=== PATIENT | female | born 1935 | race Caucasian/White ===

== ENCOUNTER 2019-04-10 10:09 | Emergency (ER) | payer MEDICARE, OTHER ==
--- NOTE | 2019-04-10 10:26 | ER Document Report ---
ED Medical Screen (RME) - General Chief Complaint: Leg Swelling Stated Complaint: LEG SWELLING Time Seen by Provider: 04/10/19 10:18 Mode of Arrival: Wheelchair Notes: 84-year-old female presented to ED for pain swelling and discomfort in the right leg. She states she fell in February and has had the swelling in this leg since then. The leg is discolored with some numbness to the leg. She states most of the pain is in the front of the leg but there is hardness to the back of the leg. Patient is alert oriented respirations regular and unlabored speaking in full sentences she is here with her family. I have greeted and performed a rapid initial assessment of this patient. A comprehensive ED assessment and evaluation of the patient, analysis of test results and completion of medical decision making process will be conducted by an additional ED providers. Dictation of this chart was performed using voice recognition software; therefore, there may be some unintended grammatical errors. TRAVEL OUTSIDE OF THE [place] IN LAST 30 DAYS: No - Related Data Allergies/Adverse Reactions: codeine Allergy (Mild, Verified 04/10/19 10:10) Past Medical History - Social History Chew tobacco use (# tins/day): No Frequency of alcohol use: None Drug Abuse: None - Past Medical History Cardiac Medical History: Reports: Hx Heart Attack, Hx Hypertension Pulmonary Medical History: Reports: Hx COPD Renal/ Medical History: Denies: Hx Peritoneal Dialysis Past Surgical History: Reports: Hx Abdominal Surgery - bowel anastimosis, kidney removal, Hx Kidney (Renal Surgery) Physical Exam - Vital signs Vitals: Temp Pulse Resp BP Pulse Ox 98.2 F 70 22 H 148/52 H 95 04/10/19 10:16 04/10/19 10:16 04/10/19 10:16 04/10/19 10:16 04/10/19 10:16 Course - Vital Signs Vital signs: Temp Pulse Resp BP Pulse Ox 98.2 F 70 22 H 148/52 H 95 04/10/19 10:16 04/10/19 10:16 04/10/19 10:16 04/10/19 10:16 04/10/19 10:16
[2019-04-10 10:47] LABS: APPEARANCE,URINE SLIGHTLY-CLOUDY; BILIRUBIN,URINE NEGATIVE (NEGATIVE); COLOR,URINE YELLOW; GLUCOSE, URINE NEGATIVE (NEGATIVE); KETONES,URINE NEGATIVE (NEGATIVE); LEUKOCYTE ESTERASE,URINE NEGATIVE (NEGATIVE); NITRITE,URINE NEGATIVE (NEGATIVE); PROTEIN,URINE NEGATIVE (NEGATIVE); URINE SPECIFIC GRAVITY 1.014; UROBILINOGEN,URINE NEGATIVE mg/dL (<2.0)
[2019-04-10 11:25] LABS: ABSOLUTE EOSINOPHILS # (AUTO) 0.1 10^3/uL (0.0-0.6); ABSOLUTE LYMPHOCYTES (AUTO) 1.4 10^3/uL (0.5-4.7); ABSOLUTE MONOCYTES (AUTO) 0.8 10^3/uL (0.1-1.4); ABSOLUTE NEUT (AUTO) 7.5 10^3/uL (1.7-8.2); BASOPHILS % (AUTO) 0.3 % (0-2); EOSINOPHILS % (AUTO) 1.2 % (0-6); HEMATOCRIT 34.2 % (36.0-47.0); HEMOGLOBIN 11.4 g/dL (12.0-15.5); LYMPHOCYTES % (AUTO) 14.4 % (13-45); MEAN CORPUSCULAR HEMOGLOBIN 29.9 pg (27.0-33.4); MEAN CORPUSCULAR HGB CONC 33.3 g/dL (32.0-36.0); MEAN CORPUSCULAR VOLUME 90 fl (80-97); MONOCYTES % (AUTO) 7.9 % (3-13); PLATELET COUNT 210 10^3/uL (150-450); RED BLOOD COUNT 3.81 10^6/uL (3.72-5.28); RED CELL DISTRIBUTION WIDTH 13.7 % (11.5-14.0); SEGMENTED NEUTROPHILS % (AUTO) 76.2 % (42-78); TOTAL CELLS COUNTED % (AUTO) 100 %; WHITE BLOOD COUNT 9.9 10^3/uL (4.0-10.5)
[2019-04-10 11:30] LABS: ALANINE AMINOTRANSFERASE 39 U/L (9-52); ALBUMIN 3.9 g/dL (3.5-5.0); ALKALINE PHOSPHATASE 62 U/L (38-126); ANION GAP 8 (5-19); ASPARTATE AMINO TRANSFERASE 22 U/L (14-36); BILIRUBIN,DIRECT 0.2 mg/dL (0.0-0.4); BILIRUBIN,TOTAL 0.3 mg/dL (0.2-1.3); BLOOD UREA NITROGEN 41 mg/dL (7-20); CALCIUM 9.8 mg/dL (8.4-10.2); CARBON DIOXIDE 34 mmol/L (22-30); CHLORIDE 99 mmol/L (98-107); GLUCOSE 104 mg/dL (75-110); POTASSIUM 4.7 mmol/L (3.6-5.0); TOTAL PROTEIN 6.7 g/dL (6.3-8.2)
--- NOTE | 2019-04-10 12:23 | RADIOLOGY REPORT (SQ) ---
EXAM DESCRIPTION: VENOUS UNILATERAL LOWER COMPLETED DATE/TIME: 04/10/2019 12:06 pm REASON FOR STUDY: pain and swelling to right leg COMPARISON: None. TECHNIQUE: Dynamic and static osullivan scale and color images acquired of the right leg venous system. S elected spectral images acquired with additional compression and augmentation maneuvers. The contrala teral common femoral vein and saphenofemoral junction were also imaged. Images stored on PACS. LIMITATIONS: None. FINDINGS: COMMON FEMORAL: Normal phasicity, compression and augmentation. No visualized echogenic ma terial on osullivan scale. No defects on color images. FEMORAL: Normal compression and augmentation. No visualized echogenic material on osullivan scale. No defe cts on color images. POPLITEAL: Normal compression, augmentation. No visualized echogenic material on osullivan scale. No defec ts on color images. CALF VESSELS: Normal compression, augmentation. No visualized echogenic material on osullivan scale. No de fects on color images. GSV and SSV: Normal compression, augmentation. No visualized echogenic material on osullivan scale. No def ects on color images. ANY DEEP VENOUS INSUFFICIENCY: No. ANY EVIDENCE OF POPLITEAL CYST: Popliteal cyst measuring 1.9 x 2.2 x 3.0 cm. OTHER: No other significant finding. CONTRALATERAL COMMON FEMORAL VEIN AND SAPHENOFEMORAL JUNCTION: Normal phasicity, compression and augmentation. No visualized echogenic material on osullivan scale. No de fects on color images. IMPRESSION: NO EVIDENCE DVT OR SVT IN THE RIGHT LEG. POPLITEAL CYST. TECHNICAL DOCUMENTATION: JOB ID: [id number] [employer]- All Rights Reserved Reading location - IP/workstation name: [email or web address]
[2019-04-10] MEDS ORDERED: CEPHALEXIN 500 MG CAPSULE PO ONE (12:27)
--- NOTE | 2019-04-10 12:28 | ER Document Report ---
Entered by LUCIO MICHEL SCRIBE 04/10/19 1124 Acting as scribe for:VIVIANA OATES MD ED Extremity Problem, Lower - General Chief Complaint: Leg Swelling Stated Complaint: LEG SWELLING Time Seen by Provider: 04/10/19 10:18 Primary Care Provider: JAISON MONGE MD [Primary Care Provider] - Follow up as needed Mode of Arrival: Wheelchair Information source: Patient, Relative Notes: Patient is an 84 year old female with HTN, HLD, COPD (on 2L of O2 at home) presents to the emergency department complaining of right lower extremity pain, swelling and redness. Patient states on March 10, 2019, she fell out of her kitchen chair unto a "rollator" hitting the right proximal lower leg, medial anterior aspect. She states she is unsure if she fell asleep or loss conscious after the fall. She states the pain, swelling and redness has been slowly, progressively worsening. She states "I did not want to come to the emergency department cause I didn't want to deal with all this mess". She denies any head trauma or any other focal symptoms. Patient states she consulted her PCP, Dr. Monge, pertaining her symptoms. She states he suggested she stay off of her feet. She states "How am I supposed to stay off my feet when I live alone?". TRAVEL OUTSIDE OF THE [place] IN LAST 30 DAYS: No - Related Data Allergies/Adverse Reactions: codeine Allergy (Mild, Verified 04/10/19 10:10) Past Medical History - General Information source: Patient - Social History Smoking Status: Former Smoker Chew tobacco use (# tins/day): No Frequency of alcohol use: None Drug Abuse: None Family History: Reviewed & Not Pertinent Patient has suicidal ideation: No Patient has homicidal ideation: No - Past Medical History Cardiac Medical History: Reports: Hx Hypercholesterolemia, Hx Hypertension, Other - Quesitonal cardiac history, used to follow up with Dr. Galvan. Pulmonary Medical History: Reports: Hx COPD Past Surgical History: Reports: Hx Abdominal Surgery - bowel anastimosis, explaratory laproscomy, Hx Breast Surgery - Biopsies, Hx Cholecystectomy - 1977, Hx Gynecologic Surgery - multiple DNCs, Hx Kidney (Renal Surgery) - R kidney removal,, Hx Orthopedic Surgery - right thumb-trigger release, Other Review of Systems - Review of Systems Constitutional: No symptoms reported EENT: No symptoms reported Cardiovascular: No symptoms reported Respiratory: No symptoms reported Gastrointestinal: No symptoms reported Genitourinary: No symptoms reported Female Genitourinary: No symptoms reported Musculoskeletal: See HPI Skin: See HPI Hematologic/Lymphatic: No symptoms reported Neurological/Psychological: No symptoms reported -: Yes All other systems reviewed and negative Physical Exam - Vital signs Vitals: Temp Pulse Resp BP Pulse Ox 98.2 F 70 22 H 148/52 H 95 04/10/19 10:16 04/10/19 10:16 04/10/19 10:16 04/10/19 10:16 04/10/19 10:16 - Notes Notes: GENERAL: Alert, interacts well. No acute distress. HEAD: Normocephalic, atraumatic. EYES: Pupils equal, round, and reactive to light. Extraocular movements intact. ENT: Oral mucosa moist, tongue midline. NECK: Full range of motion. Supple. Trachea midline. LUNGS: Coarse breath sounds. No respiratory distress. HEART: Regular rate and rhythm. No murmurs, gallops, or rubs. ABDOMEN: Soft, non-tender. Non-distended. Bowel sounds present in all 4 quadrants. No guarding, rigidity, or rebound. EXTREMITIES: Moves all 4 extremities spontaneously. Right lower extremity is with good dorsalis pedis pulses, the anterior aspect is erythematous with dry scaling to suggest chronic cellulitis. The right calf is swollen, almost tense, tender to palpation towards the Achilles heel. NEUROLOGICAL: Alert and oriented x3. Normal speech. PSYCH: Normal affect, normal mood. SKIN: Warm, RLE warmer than LLE. Dry. Course - Vital Signs Vital signs: Temp Pulse Resp BP Pulse Ox 97.6 F 74 22 H 168/61 H 92 04/10/19 13:20 04/10/19 13:20 04/10/19 10:16 04/10/19 13:20 04/10/19 13:20 - Laboratory Result Diagrams: 04/10/19 10:52 04/10/19 10:52 Laboratory results interpreted by me: 04/10/19 04/10/19 04/10/19 10:30 10:52 10:52 Hgb 11.4 L Hct 34.2 L Carbon Dioxide 34 H BUN 41 H Urine Ascorbic Acid 40 H - Diagnostic Test Radiology reviewed: Image reviewed, Reports reviewed - Right leg x-ray shows diffuse soft tissue swelling without fracture or foreign body. Venous Doppler does not show DVT. There is a small popliteal cyst. Discharge - Discharge Clinical Impression: Swelling of lower leg Cellulitis Qualifiers: Site of cellulitis: extremity Site of cellulitis of extremity: lower extremity Laterality: right Qualified Code(s): L03.115 - Cellulitis of right lower limb Popliteal cyst Qualifiers: Laterality: right Qualified Code(s): M71.21 - Synovial cyst of popliteal space [Paez], right knee Condition: Stable Disposition: HOME, SELF-CARE Additional Instructions: Cellulitis You have an infection of your skin and underlying soft tissues called cellulitis. This is due to bacteria, which can enter through any break in the skin, or even through an irritated hair follicle. Untreated, cellulitis will usually worsen. Antibiotics are required. Usually, warm packs or warm soaks, and elevation of the infected area are recommended. You should start getting better within 24 to 36 hours. Most infections respond quickly to the right medication. Follow-up care is important, however, to check for abscess (boil) formation, unsuspected foreign body, or resistant infection. If you develop fever, chills, or if the area of infection is becoming rapidly more swollen or painful, call the doctor at once. The venous Doppler study of your leg did not show evidence of deep venous thrombosis. There was a small popliteal cyst noted. The x-ray of your leg does not show bony abnormalities or foreign bodies. Your history and physical suggests that you have developed a low-grade chronic cellulitis of the right lower leg and that is causing the pain and swelling at this time. You should take medications as prescribed. Elevate your leg is much as possible. Follow-up with your doctor this week for recheck. RETURN TO THE EMERGENCY ROOM IF ANY NEW OR WORSENING SYMPTOMS. Prescriptions: Cephalexin Monohydrate [Keflex 500 mg Capsule] 500 mg PO QID #28 capsule Referrals: JAISON MONGE MD [Primary Care Provider] - Follow up as needed Scribe Attestation: 04/10/19 13:05 I personally performed the services described in the documentation, reviewed and edited the documentation which was dictated to the scribe in my presence, and it accurately records my words and actions. I personally performed the services described in the documentation, reviewed and edited the documentation which was dictated to the scribe in my presence, and it accurately records my words and actions.
--- NOTE | 2019-04-10 12:52 | RADIOLOGY REPORT (SQ) ---
EXAM DESCRIPTION: TIBIA FIBULA RIGHT COMPLETED DATE/TIME: 04/10/2019 12:42 pm REASON FOR STUDY: Prox Tibia trauma, swelling, cellulitis COMPARISON: None. NUMBER OF VIEWS: Two views. TECHNIQUE: Two radiographic images acquired of the right tibia and fibula to include the knee and an kle in at least one projection. LIMITATIONS: None. FINDINGS: MINERALIZATION: Normal. BONES: No acute fracture or dislocation. No worrisome bone lesions. SOFT TISSUES: Diffuse soft tissue swelling. No radiopaque foreign body. OTHER: No other significant finding. IMPRESSION: Diffuse soft tissue swelling. No radiopaque foreign body or osseous finding. TECHNICAL DOCUMENTATION: JOB ID: [id number] [employer]- All Rights Reserved Reading location - IP/workstation name: [email or web address]
[2019-04-10 13:22] VITALS: BP 168/61
== END 2019-04-10 13:22 | disposition home or self-care (01) ==
LOC: ER 10:09
DX: L03.115 Cellulitis of right lower limb (principal); M71.21 Synovial cyst of popliteal space [Baker], right knee; I10 Essential (primary) hypertension; J44.9 Chronic obstructive pulmonary disease, unspecified; Z99.81 Dependence on supplemental oxygen; Z88.5 Allergy status to narcotic agent; Z87.891 Personal history of nicotine dependence
CPT/HCPCS: 99284; 36415; 85025; 80053; 81001; 83880; 93971; 73590; A9270